=== PATIENT | male | born 1960 | race Caucasian/White ===

== ENCOUNTER 2019-08-14 03:29 | Emergency (ER) | payer BC ==
--- NOTE | 2019-08-14 04:04 | EDM.PDOC ---
ED HPI GENERAL MEDICAL PROBLEM - General Chief Complaint: Respiratory Problem Stated Complaint: SOB Time Seen by Provider: 08/14/19 03:30 Source of Information: Reports: Patient, Family History Limitations: Reports: No Limitations - History of Present Illness INITIAL COMMENTS - FREE TEXT/NARRATIVE: 59-year-old male who 2 days ago had an episode where he became lightheaded, had extremity paresthesias, and felt very weak while he was driving so was evaluated for several hours in the [place] emergency room. His work-up was negative other than he was "dehydrated". They felt he may have been having a reaction to Levaquin which he was started for for a lingering bronchitis. Yesterday he felt good, went to bed last night and woke this morning at 2 AM feeling short of breath, anxious, and uncomfortable. He sat up and drank water for a while and was not feeling any better so came into the hospital. He had to have his drive because he felt so awful, lightheaded and short of breath. He arrived with an O2 saturation of 100%, breathing slow but deeply and had a sinus rhythm of 60 on the monitor with occasional PVCs. He was afebrile. He is on no medications currently. Onset: Unknown/Unsure (Woke with symptoms at 2 AM) Associated Symptoms: Reports: Diaphoresis, Malaise, Shortness of Breath, Weakness, Other (Paresthesias of the extremities). Denies: Chest Pain, Cough - Related Data Allergies Allergy/AdvReac Type Severity Reaction Status Date / Time No Known Allergies Allergy Verified 05/11/15 10:43 Home Meds: Home Meds NK [No Known Home Meds] 05/11/15 [History] ED ROS GENERAL - Review of Systems Review Of Systems: See Below Constitutional: Reports: Malaise. Denies: Fever, Chills HEENT: Reports: Other (Had an eye exam yesterday, unremarkable) Respiratory: Reports: Shortness of Breath, Cough (Lingering dry cough) Cardiovascular: Reports: Palpitations. Denies: Chest Pain GI/Abdominal: Reports: No Symptoms : Reports: No Symptoms Neurological: Reports: Dizziness, Difficulty Walking, Weakness ED EXAM, GENERAL - Physical Exam Exam: See Below Exam Limited By: No Limitations General Appearance: Alert, Anxious Eye Exam: Bilateral Eye: Normal Inspection Head: Atraumatic Respiratory/Chest: No Respiratory Distress, Lungs Clear Cardiovascular: Regular Rate, Rhythm, Extra Beats (Occasional extra beats, no murmur) GI/Abdominal: Soft, Non-Tender Extremities: Normal Inspection. No: Pedal Edema Neurological: Alert, Oriented Psychiatric: Anxious Skin Exam: Warm, Dry EKG INTERPRETATION Rhythm: NSR QRS: RBBB Course - Vital Signs Last Recorded V/S: Last Vital Signs Temp Pulse 49 L 08/14/19 04:51 Resp 10 L 08/14/19 04:51 BP 116/67 08/14/19 04:51 Pulse Ox 99 08/14/19 04:51 - Orders/Labs/Meds Orders: Active Orders 24 hr Category Date Time Status EKG Documentation Completion [RC] ASDIRECTED Care 08/14/19 03:59 Active EKG 12 Lead [EK] Routine Ther 08/14/19 03:58 Ordered Labs: Laboratory Tests 08/14/19 08/14/19 08/14/19 Range/Units 03:58 04:00 04:00 WBC 4.7 (4.5-11.0) K/uL RBC 4.27 L (4.30-5.90) M/uL Hgb 13.4 (12.0-15.0) g/dL Hct 38.8 L (40.0-54.0) % MCV 91 (80-98) fL MCH 31 (27-31) pg MCHC 35 (32-36) % Plt Count 158 (150-400) K/uL Neut % (Auto) 48 (36-66) % Lymph % (Auto) 39 (24-44) % [place] % (Auto) 10 H (2-6) % Eos % (Auto) 3 (2-4) % Baso % (Auto) 0 (0-1) % Puncture Site ABG pH (7.350-7.450) ABG pCO2 (35.0-42.0) mmHg ABG pO2 (75.0-100.0) mmHg ABG HCO3 (22.0-26.0) mmol/L ABG Total CO2 (23.0-27.0) mmol/L ABG O2 Saturation (95.0-98.0) % ABG O2 Content (15.0-23.0) %vol ABG Base Excess mm/L ABG Hemoglobin (13.5-18.0) g/dL ABG Oxyhemoglobin % ABG Carboxyhemoglobin (0.0-1.6) % ABG Methemoglobin % Derrick Test O2 Delivery Device Sodium 130 L (140-148) mmol/L Potassium 3.3 L (3.6-5.2) mmol/L Chloride 100 (100-108) mmol/L Carbon Dioxide 24 (21-32) mmol/L Anion Gap 9.3 (5.0-14.0) mmol/L BUN 19 H (7-18) mg/dL Creatinine 1.4 H (0.8-1.3) mg/dL Est Cr Clr Drug Dosing TNP Estimated GFR (MDRD) 52 L (>60) Glucose 111 H (74-106) mg/dL Calcium 8.1 L (8.5-10.1) mg/dL Magnesium 1.9 (1.8-2.4) mg/dL Total Bilirubin 0.4 D (0.2-1.0) mg/dL AST 14 L (15-37) U/L ALT 27 (12-78) U/L Alkaline Phosphatase 63 (46-116) U/L Troponin I < 0.017 (0.000-0.056) ng/mL Total Protein 6.6 (6.4-8.2) g/dL Albumin 3.4 (3.4-5.0) g/dL Globulin 3.2 (2.3-3.5) g/dL Albumin/Globulin Ratio 1.1 L (1.2-2.2) TSH, Ultra Sensitive 2.342 (0.358-3.740) uIU/mL 08/14/19 Range/Units 04:15 WBC (4.5-11.0) K/uL RBC (4.30-5.90) M/uL Hgb (12.0-15.0) g/dL Hct (40.0-54.0) % MCV (80-98) fL MCH (27-31) pg MCHC (32-36) % Plt Count (150-400) K/uL Neut % (Auto) (36-66) % Lymph % (Auto) (24-44) % [place] % (Auto) (2-6) % Eos % (Auto) (2-4) % Baso % (Auto) (0-1) % Puncture Site L radial ABG pH 7.416 (7.350-7.450) ABG pCO2 32.2 L (35.0-42.0) mmHg ABG pO2 73.6 L (75.0-100.0) mmHg ABG HCO3 20.3 L (22.0-26.0) mmol/L ABG Total CO2 18.0 L (23.0-27.0) mmol/L ABG O2 Saturation 94.8 L (95.0-98.0) % ABG O2 Content 17.6 (15.0-23.0) %vol ABG Base Excess -2.9 mm/L ABG Hemoglobin 13.4 L (13.5-18.0) g/dL ABG Oxyhemoglobin 93.5 % ABG Carboxyhemoglobin 0.7 (0.0-1.6) % ABG Methemoglobin 0.7 % Derrick Test Ok O2 Delivery Device Room air Sodium (140-148) mmol/L Potassium (3.6-5.2) mmol/L Chloride (100-108) mmol/L Carbon Dioxide (21-32) mmol/L Anion Gap (5.0-14.0) mmol/L BUN (7-18) mg/dL Creatinine (0.8-1.3) mg/dL Est Cr Clr Drug Dosing Estimated GFR (MDRD) (>60) Glucose (74-106) mg/dL Calcium (8.5-10.1) mg/dL Magnesium (1.8-2.4) mg/dL Total Bilirubin (0.2-1.0) mg/dL AST (15-37) U/L ALT (12-78) U/L Alkaline Phosphatase (46-116) U/L Troponin I (0.000-0.056) ng/mL Total Protein (6.4-8.2) g/dL Albumin (3.4-5.0) g/dL Globulin (2.3-3.5) g/dL Albumin/Globulin Ratio (1.2-2.2) TSH, Ultra Sensitive (0.358-3.740) uIU/mL - Re-Assessments/Exams Free Text/Narrative Re-Assessment/Exam: 08/14/19 04:03 An EKG G was done which showed no ST changes, patient was kept on the monitor. After talking with the patient for 15 to 20 minutes his breathing slowed down and his O2 saturations dropped to 95 to 96%. CBC, CMP, magnesium, troponin were obtained as well as ABGs. 08/14/19 04:47 After resting and relaxing and waiting for labs, the patient normalized and his symptoms resolved. Troponin is 0, TSH is normal, sodium is 130, creatinine 1.4 and GFR 52. These levels are very similar to 2015. Hemoglobin and white count are normal. He remained in a sinus rhythm with occasional PVCs. Blood gases did reveal a low CO2 at 32. pH was normal. Likely diagnosis is vasovagal episode with hyperventilation syndrome. Patient will follow-up with his primary provider after his 2 ER visits, and discuss further testing such as Holter monitor, event monitor or another cardiac stress test. Departure - Departure Time of Disposition: 04:51 Disposition: Home, Self-Care 01 Clinical Impression: Hyperventilation syndrome, Vasovagal near syncope - Discharge Information Instructions: Hyperventilation Referrals: PCP,None [Primary Care Provider] - Forms: ED Department Discharge Care Plan Goals: Consider rechecking with your primary provider to discuss your 2 ER visits and any further testing such as a Holter monitor, event monitor, stress test or possibly a medical consultation. Return to the emergency room at any time you feel you are worsening or develop other concerns. Sepsis Event Note - Evaluation Sepsis Screening Result: No Definite Risk - Focused Exam Date Exam was Performed: 08/14/19 Time Exam was Performed: 17:19 - My Orders Last 24 Hours: My Active Orders 08/14/19 03:58 EKG 12 Lead [EK] Routine 08/14/19 03:59 EKG Documentation Completion [RC] ASDIRECTED - Assessment/Plan Last 24 Hours: My Active Orders 08/14/19 03:58 EKG 12 Lead [EK] Routine 08/14/19 03:59 EKG Documentation Completion [RC] ASDIRECTED
[2019-08-14 04:58] VITALS: BP 116/67; PULSE 49
== END 2019-08-14 05:00 | disposition home or self-care (01) ==
LOC: JP.ED 03:29
DX: R55 Syncope and collapse (principal)
CPT/HCPCS: 36415; 36600; 80053; 82803; 83735; 84443; 84484; 85025; 93005; 99285-25